=== PATIENT | female | born 1960 | race Caucasian/White ===

== ENCOUNTER 2024-10-17 07:19 | Day surgery (SDC) | payer MEDICARE, OTHER ==
[2024-10-13 14:37] LABS: BASOPHILS % (AUTO) 0.6 % (0-1); EOSINOPHILS # (AUTO) 0.1 X10'3 (0-0.9); EOSINOPHILS % (AUTO) 1.8 % (0-6); LYMPHOCYTES # (AUTO) 1.8 X10'3 (1.1-4.8); MEAN CORPUSCULAR HEMOGLOBIN 28.5 PG (27.0-31.0); MEAN CORPUSCULAR HGB CONC 32.9 g/dL (33.0-36.5); MEAN CORPUSCULAR VOLUME 86.4 FL (78-98); MEAN PLATELET VOLUME 7.2 FL (7.4-10.4); MONOCYTES # (AUTO) 0.4 X10'3 (0-0.9); MONOCYTES % (AUTO) 8.2 % (2-12); NEUTROPHILS % (AUTO) 55.4 % (42-75); PRE OP HEMOGLOBIN 12.2 g/dL (12.0-16.0); PRE OP PLATELET COUNT 277 X10'3 (140-440); PRE OP WHITE BLOOD COUNT 5.4 10'3 (4.8-10.8); RED BLOOD COUNT 4.28 X10'6 (4.20-5.60); RED CELL DISTRIBUTION WIDTH 13.7 % (11.5-14.5)
[2024-10-13 15:09] LABS: ALBUMIN 3.5 G/DL (3.4-5.0); ALBUMIN/GLOBULIN RATIO 0.9 (1.1-1.5); ALKALINE PHOSPHATASE 122 IU/L (46-116); BLOOD UREA NITROGEN 23 MG/DL (7-18); BUN/CREATININE RATIO 31.5 (10.0-20.0); CALCIUM 8.5 MG/DL (8.5-10.1); CHLORIDE 104 MMOL/L (99-107); CREATININE 0.73 MG/DL (0.40-0.90); PRE OP ALT 22 U/L (30-65); PRE OP ANION GAP 8 (8-16); PRE OP AST 15 U/L (10-37); PRE OP BILIRUB, TOTAL 0.3 MG/DL (0.0-1.0); PRE OP GLUCOSE 111 MG/DL (70-104); PRE OP POTASSIUM 4.4 MMOL/L (3.4-5.1); PRE OP SODIUM 143 MMOL/L (135-145); TOTAL CARBON DIOXIDE 31.5 MMOL/L (24-32); TOTAL PROTEIN 7.4 G/DL (6.4-8.2); eGFR 81 ML/MIN
[2024-10-17] VITALS (9 sets, daily range): BP systolic 98–130; BP diastolic 52–75; PULSE 58–70; RESP 12–18; TEMP 98.9; O2SAT 96–99
[~2024-10-17] VITALS: Ht 157.5 cm; Wt 89.7 kg
[2024-10-17] MEDS: clindamycin-Cleocin 900mg/D5W 50 ML IV ONE (05:30)
[~2024-10-17 07:19] MED LIST: BUPR-561 PO; BUPR8TAB4 SL; DOCUMENT DATE & TIME OF BETA-BLOCKER PO ONE; DULO60CA46 PO; DULO60CA65 PO; DUPI300S SQ; FURO20TA4 PO; LIDO700A47 TOP; METO-384 PO; PANT40TA54 PO; POLY17PO10 PO; POTA-366 PO; PREG100C PO; QUET50TA24 PO; TERI2.4P SUBCUT
[2024-10-17] MEDS: famotidine 20mg tablet PO ONE (08:30)
[2024-10-17] MEDS: ringers solution, lacted 1,000 ML IV SCH (08:30)
[2024-10-17] MEDS ORDERED: fentaNYL/PF 50MCG/1 ML 2ML syringe ONE (09:03)
[2024-10-17] MEDS ORDERED: midazolam 1 mg/ML 2ml injection ONE (09:03)
[2024-10-17] MEDS ORDERED: LIDOcaine 1% (10mg/ml)w/preservative inj. 20ml MDV ONE (09:21)
[2024-10-17] MEDS ORDERED: propofol inj 20 ML IV ONE (09:39)
[2024-10-17] MEDS: BUPIVAcaine/PF 2.5mg/ml (0.25%) 10ml vial IJ ONE (09:56)
[2024-10-17] MEDS ORDERED: proCHLORperazine 10 MG/2 ml inj IV PRN (10:20)
[2024-10-17] MEDS ORDERED: meperidine/PF 25mg/ml syringe IV PRN ×2 (10:20)
[2024-10-17] MEDS ORDERED: ringers solution, lacted 1,000 ML IV SCH (10:20)
[2024-10-17] MEDS ORDERED: ondansetron/PF 4mg/2ml inj IV PRN (10:20)
[2024-10-17] MEDS: morphine 4 MG/ML inj SYRINge IV PRN (10:30)
[2024-10-17] MEDS: meperidine/PF 25mg/ml syringe IV PRN (10:51)
[2024-10-17] MEDS: morphine 2 MG/ML inj. syringe IV PRN (11:06)
== END 2024-10-17 11:25 | disposition home or self-care (01) ==
LOC: PAS 07:19
PROVIDERS: ATTEND Orthopaedic Surgery Hand Surgery
DX: M19.041 Primary osteoarthritis, right hand (principal); M65.331 Trigger finger, right middle finger; M65.341 Trigger finger, right ring finger; M65.321 Trigger finger, right index finger; Z79.899 Other long term (current) drug therapy; Z98.890 Other specified postprocedural states; F32.A Depression, unspecified; I10 Essential (primary) hypertension; Z88.0 Allergy status to penicillin; Z91.040 Latex allergy status; M06.9 Rheumatoid arthritis, unspecified; Z98.51 Tubal ligation status
CPT/HCPCS: 26055; 26860; 26861; 36415; 80053; 85025; 93005; A4215; A4618; A7000; C1713; C1769; J2175; J2250; J2270; J2704; J3010; J3490; J7030; J7120; Z7506; Z7508; Z7512; Z7610

== ENCOUNTER 2024-10-17 20:40 | Emergency (ER) | payer MEDICARE, OTHER ==
[~2024-10-17] VITALS: Ht 157.5 cm; Wt 90.1 kg
[~2024-10-17 20:40] MED LIST changes: -BUPR-561 PO; +BUPR-726 PO; -DOCUMENT DATE & TIME OF BETA-BLOCKER PO ONE
[2024-10-17 20:56] VITALS: TEMP 98.3
[2024-10-18] MEDS: ondansetron 4mg rapidly disintigrating tab PO ONE (00:22)
[2024-10-18] MEDS: HYDROcodone/acetaminophen 5mg/325mg tablet PO ONE (00:23)
[2024-10-18] MEDS: ketorolac trometh 15mg/ml vial 15 MG/ML ML IM ONE (00:23)
[2024-10-18 01:32] VITALS: BP 131/70; PULSE 62; RESP 16; O2SAT 94
== END 2024-10-18 01:33 | disposition home or self-care (01) ==
LOC: ER 20:41
DX: G89.18 Other acute postprocedural pain (principal); Z88.0 Allergy status to penicillin; Z88.8 Allergy status to other drugs, medicaments and biological substances
CPT/HCPCS: 29125; 96372; 99283; A6222; A6449; J1885